=== PATIENT | male | born 1960 | race Caucasian/White ===

== ENCOUNTER → 2017-03-03 | Outpatient (CLI) | payer MEDICAID ==
[~2017-03-03] MED LIST: BLOOD PRESSURE MED PO; CAFF200T38 PO; LISI1TAB7 PO; LISI40TA PO; METF500T4 PO; METFORMIN PO
[2017-03-03 09:16] LABS: HEMATOCRIT 42.8 % (39.2-51.8); HEMOGLOBIN 14.1 g/dL (13.7-18.0); WHITE BLOOD COUNT 5.3 x10^3/uL (3.4-10)
[2017-03-03 09:28] LABS: BLOOD UREA NITROGEN 13 mg/dL (7-18)
[2017-03-03 09:29] LABS: ASPARTATE AMINO TRANSFERASE 77 U/L (15-37)
== END | disposition home or self-care (01) ==
LOC: STAR 08:12
PROVIDERS: ATTEND Orthopaedic Surgery Orthopaedic Surgery of the Spine
DX: Z01.818 Encounter for other preprocedural examination (principal); R94.31 Abnormal electrocardiogram [ECG] [EKG]; M96.0 Pseudarthrosis after fusion or arthrodesis; M54.12 Radiculopathy, cervical region; E11.9 Type 2 diabetes mellitus without complications
CPT/HCPCS: 36415; 71020; 80053; 81001; 85025; 93005

== ENCOUNTER 2017-03-05 14:56 | Inpatient (IN) | payer MEDICAID ==
[~2017-03-05] VITALS: Ht 172.7 cm; Wt 79.7 kg
[2017-03-05] MEDS ORDERED: SODIUM CHLORIDE FLUSH 10ML SYR IVF ONE (15:30)
[2017-03-05] MEDS ORDERED: FAMOTIDINE 20 MG TABLET PO ONE (15:30)
[2017-03-05] MEDS ORDERED: DIPHENHYDRAMINE 50 MG/ML, 1ML IVPush ONE (15:30)
[2017-03-05] MEDS ORDERED: methylPREDNISolone SOD SUCC 125 MG/2 ML IVPush ONE (15:30)
[2017-03-05] MEDS ORDERED: methylPREDNISolone SOD SUCC 125 MG/2 ML ONE (15:59)
[2017-03-05] MEDS ORDERED: FAMOTIDINE 20 MG TABLET ONE (16:00)
[2017-03-05] MEDS ORDERED: DIPHENHYDRAMINE 50 MG/ML, 1ML ONE (16:00)
[2017-03-05 16:04] LABS: HEMATOCRIT 42.8 % (39.2-51.8); HEMOGLOBIN 13.9 g/dL (13.7-18.0); WHITE BLOOD COUNT 5.6 x10^3/uL (3.4-10)
[2017-03-05 16:14] LABS: BLOOD UREA NITROGEN 15 mg/dL (7-18)
[2017-03-05] MEDS ORDERED: NITROGLYCERIN OINT 2%, 1GM TP ONE ×2 (16:25→16:30)
[2017-03-05] MEDS ORDERED: FUROSEMIDE 40 MG/4 ML ONE (16:25)
[2017-03-05] MEDS ORDERED: LORazepam 2 MG/ML, 1ML ONE (16:26)
[2017-03-05] MEDS ORDERED: FUROSEMIDE 40 MG/4 ML IVPush ONE (16:30)
[2017-03-05] MEDS ORDERED: LORazepam 2 MG/ML, 1ML IVPush ONE (16:30)
[2017-03-05] MEDS ORDERED: DILTIAZEM 5 MG/ML, 5ML ONE ×2 (16:38→17:37)
[2017-03-05] MEDS ORDERED: DILTIAZEM 5 MG/ML, 5ML IV ONE ×2 (17:00→18:00)
[2017-03-05] MEDS ORDERED: SODIUM CHLORIDE FLUSH 10ML SYR IVF PRN (18:30)
[2017-03-05] MEDS ORDERED: ONDANSETRON ODT 4 MG PO PRN (19:00)
[2017-03-05] MEDS ORDERED: DOCUSATE 100 MG CAPSULE PO PRN (19:00)
[2017-03-05] MEDS ORDERED: ACETAMINOPHEN 325 MG TABLET PO PRN (19:00)
[2017-03-05] MEDS ORDERED: LABETALOL 5MG/ML, 20ML ONE (19:44)
[2017-03-05] MEDS: LABETALOL 5MG/ML, 20ML IVPush PRN ×2 (19:53→23:29)
[2017-03-05] MEDS: FAMOTIDINE 20 MG/2 ML IVPush SCH (21:39)
[2017-03-05 22:03] VITALS: BP 180/104
[2017-03-05] MEDS ORDERED: MAGNESIUM SULFATE PMX 4GM/100M 100 ML IV ONE (23:00)
[2017-03-05] MEDS: DIPHENHYDRAMINE 50 MG/ML, 1ML IVPush SCH (23:26)
[2017-03-05] MEDS: INSULIN ASPART 100 UNITS/ML, PEN SQ-INSULIN SCH (23:27)
[2017-03-05] MEDS: BEER 12 OZ CAN PO SCH (23:27)
[2017-03-05] MEDS: methylPREDNISolone SOD SUCC 125 MG/2 ML IVPush SCH (23:33)
[2017-03-05] MEDS: ENOXAPARIN 40 MG/0.4 ML SQ SCH (23:34)
[2017-03-05 23:55] VITALS: BP 167/100
[2017-03-06] VITALS (11 sets, daily range): BP systolic 148–197; BP diastolic 89–131
[2017-03-06] MEDS: DIPHENHYDRAMINE 50 MG/ML, 1ML IVPush SCH ×4 (02:08→16:44)
[2017-03-06] MEDS: LABETALOL 5MG/ML, 20ML IVPush PRN (02:09)
[2017-03-06] MEDS: ENALAPRILAT 1.25 MG/ML, 2ML IV PRN ×5 (05:38→20:55)
[2017-03-06] MEDS: methylPREDNISolone SOD SUCC 125 MG/2 ML IVPush SCH ×3 (05:39→20:04)
[2017-03-06 05:51] LABS: BLOOD UREA NITROGEN 21 mg/dL (7-18)
[2017-03-06 05:56] LABS: HEMATOCRIT 45.3 % (39.2-51.8); HEMOGLOBIN 14.9 g/dL (13.7-18.0); WHITE BLOOD COUNT 3.2 x10^3/uL (3.4-10)
[2017-03-06] MEDS ORDERED: METOPROLOL TARTRATE 50 MG TABLET ONE (07:47)
[2017-03-06] MEDS: INSULIN ASPART 100 UNITS/ML, PEN SQ-INSULIN SCH ×4 (07:57→20:05)
[2017-03-06] MEDS: METOPROLOL TARTRATE 25 MG TABLET PO SCH ×2 (07:57→16:54)
[2017-03-06] MEDS: hydrALAzine 20 MG/ML, 1ML IV PRN ×3 (07:58→22:15)
[2017-03-06] MEDS: FAMOTIDINE 20 MG/2 ML IVPush SCH ×2 (07:58→20:04)
[2017-03-06] MEDS ORDERED: LORazepam 2 MG/ML, 1ML IVPush PRN (08:00)
[2017-03-06] MEDS: BEER 12 OZ CAN PO SCH ×2 (08:29→16:54)
[2017-03-06] MEDS: LISINOPRIL 20 MG TABLET PO SCH (08:29)
[2017-03-06] MEDS: FUROSEMIDE 20 MG/2 ML IV SCH ×2 (09:30→16:54)
[2017-03-06] MEDS: ENOXAPARIN 40 MG/0.4 ML SQ SCH (20:04)
[2017-03-06] MEDS: AMLODIPINE 5 MG TABLET PO SCH (20:05)
[2017-03-07] VITALS (7 sets, daily range): BP systolic 138–182; BP diastolic 87–116
[2017-03-07] MEDS: DIPHENHYDRAMINE 50 MG/ML, 1ML IVPush SCH ×3 (00:46→17:10)
[2017-03-07] MEDS: methylPREDNISolone SOD SUCC 125 MG/2 ML IVPush SCH ×3 (03:56→19:54)
[2017-03-07] MEDS: hydrALAzine 20 MG/ML, 1ML IV PRN (04:08)
[2017-03-07 05:06] LABS: HEMOGLOBIN 14.4 g/dL (13.7-18.0); WHITE BLOOD COUNT 10.3 x10^3/uL (3.4-10)
[2017-03-07 05:13] LABS: ASPARTATE AMINO TRANSFERASE 31 U/L (15-37); BLOOD UREA NITROGEN 31 mg/dL (7-18)
[2017-03-07] MEDS: METOPROLOL TARTRATE 25 MG TABLET PO SCH ×2 (05:14→17:10)
[2017-03-07] MEDS: AMLODIPINE 5 MG TABLET PO SCH ×2 (07:37→19:54)
[2017-03-07] MEDS: LISINOPRIL 20 MG TABLET PO SCH (07:37)
[2017-03-07] MEDS: INSULIN ASPART 100 UNITS/ML, PEN SQ-INSULIN SCH ×4 (07:38→19:54)
[2017-03-07] MEDS: BEER 12 OZ CAN PO SCH ×2 (08:20→17:28)
[2017-03-07] MEDS ORDERED: FUROSEMIDE 20 MG/2 ML IV ONE (09:00)
[2017-03-07] MEDS: FAMOTIDINE 20 MG TABLET PO SCH ×2 (11:35→19:54)
[2017-03-07] MEDS: ENOXAPARIN 40 MG/0.4 ML SQ SCH (17:10)
[2017-03-08 00:21] VITALS: BP 178/112
[2017-03-08] MEDS: hydrALAzine 20 MG/ML, 1ML IV PRN (00:27)
[2017-03-08] MEDS: methylPREDNISolone SOD SUCC 125 MG/2 ML IVPush SCH ×2 (03:25→11:55)
[2017-03-08 03:27] VITALS: BP 159/100
[2017-03-08 05:49] VITALS: BP 153/101
[2017-03-08] MEDS: METOPROLOL TARTRATE 25 MG TABLET PO SCH (05:49)
[2017-03-08 05:54] LABS: HEMATOCRIT 45.5 % (39.2-51.8); HEMOGLOBIN 14.9 g/dL (13.7-18.0); WHITE BLOOD COUNT 10.3 x10^3/uL (3.4-10)
[2017-03-08 06:05] LABS: BLOOD UREA NITROGEN 31 mg/dL (7-18)
[2017-03-08 07:30] VITALS: BP 155/109
[2017-03-08] MEDS: AMLODIPINE 5 MG TABLET PO SCH (07:34)
[2017-03-08] MEDS: LISINOPRIL 20 MG TABLET PO SCH (07:34)
[2017-03-08] MEDS: FAMOTIDINE 20 MG TABLET PO SCH (07:34)
[2017-03-08] MEDS: INSULIN ASPART 100 UNITS/ML, PEN SQ-INSULIN SCH ×2 (07:35→11:55)
[2017-03-08] MEDS: BEER 12 OZ CAN PO SCH (08:50)
[2017-03-08] MEDS ORDERED: METO25TA35 PO (11:50)
[2017-03-08] MEDS ORDERED: AMLO5TAB2 PO (11:50)
== END 2017-03-08 15:42 | disposition home or self-care (01) | DRG 304 ==
LOC: ED 17:04 → EDIP 18:14 → 5SO 21:53 → DCLOUNGE 03-08 15:15
PROVIDERS: ADMIT Family Medicine; ATTEND Family Medicine
DX: I16.9 Hypertensive crisis, unspecified (principal); I50.21 Acute systolic (congestive) heart failure; I31.3 Pericardial effusion (noninflammatory); E11.621 Type 2 diabetes mellitus with foot ulcer; L97.509 Non-pressure chronic ulcer of other part of unspecified foot with unspecified severity; R13.10 Dysphagia, unspecified; I11.0 Hypertensive heart disease with heart failure; F10.20 Alcohol dependence, uncomplicated; I16.0 Hypertensive urgency; R04.0 Epistaxis; T78.3XXA Angioneurotic edema, initial encounter; M48.00 Spinal stenosis, site unspecified
CPT/HCPCS: 36415; 71010; 71275; 80048; 80053; 82040; 82962; 83036; 83735; 83880; 84100; 84439; 84443; 85025; 85379; 93005; 93306; 96374; 96375; J1650; J1815; J1940; Q0162; Q9967; J0360; J1200; J2060; J2930; J3475; S0028

== ENCOUNTER 2017-03-10 07:30 | Inpatient (IN) | payer MEDICAID ==
[~2017-03-10] VITALS: Ht 172.7 cm; Wt 78.3 kg
[~2017-03-10 07:30] MED LIST changes: +AMLO5TAB2 PO; +BACITRACIN OINT 500U/GM, 15 GM ONE; +BUPIVACAINE/PF 0.5% ONE; +EPINEPHRINE 1 MG/ML, 1ML ONE; +METO25TA35 PO; +OMNIPAQUE 350 MG/ML, 100ML BOTTLE ONE; +THROMBIN 5,000 UNIT VIAL TP ONE
[2017-03-10] MEDS ORDERED: LACTATED RINGERS 1,000 ML IV SCH (08:00)
[2017-03-10] MEDS ORDERED: AMLO5TAB2 PO (08:39)
[2017-03-10] MEDS ORDERED: METO25TA35 PO (08:39)
[2017-03-10 08:40] VITALS: BP 160/115
[2017-03-10] MEDS ORDERED: MIDAZOLAM 1 MG/ML, 2ML ONE (10:06)
[2017-03-10] MEDS ORDERED: FENTANYL PF 100 MCG/2ML ONE ×3 (10:06→13:31)
[2017-03-10] MEDS ORDERED: BISACODYL 10 MG SUPP PR PRN (11:00)
[2017-03-10] MEDS ORDERED: morphine SULFATE 10 MG/ML, 1ML IVPush PRN (11:00)
[2017-03-10] MEDS ORDERED: ONDANSETRON 2MG/ML, 2ML IVPush PRN ×2 (11:00→12:30)
[2017-03-10] MEDS ORDERED: SENNA/DOCUSATE TABLET PO PRN (11:00)
[2017-03-10] MEDS ORDERED: PROMETHAZINE 25 MG/ML, 1ML IM PRN (11:00)
[2017-03-10] MEDS ORDERED: DIPHENHYDRAMINE 50 MG/ML, 1ML IVPush PRN (11:00)
[2017-03-10] MEDS ORDERED: LABETALOL 5MG/ML, 20ML IVPush PRN (11:00)
[2017-03-10] MEDS ORDERED: MAGNESIUM HYDROXIDE 8%, 30ML UDC PO PRN (11:00)
[2017-03-10] MEDS ORDERED: PHARMACY MAY ADJ FOR RENAL FX MC PRN (11:00)
[2017-03-10] MEDS ORDERED: CEFAZOLIN 1,000 MG ONE (11:02)
[2017-03-10] MEDS ORDERED: PROPOFOL 10 MG/ML, 20ML ONE (11:02)
[2017-03-10] MEDS ORDERED: DEXAMETHASONE 4 MG/ML, 1ML ONE (11:02)
[2017-03-10] MEDS ORDERED: ONDANSETRON 2MG/ML, 2ML ONE (11:02)
[2017-03-10] MEDS ORDERED: PROMETHAZINE 25 MG/ML, 1ML IV PRN (12:30)
[2017-03-10] MEDS ORDERED: hydrALAzine 20 MG/ML, 1ML IV PRN (12:30)
[2017-03-10] MEDS ORDERED: ACETAMINOPHEN 325 MG TABLET PO PRN (12:30)
[2017-03-10] MEDS ORDERED: HYDROmorphone 1 MG/ML, 1ML IV PRN (12:30)
[2017-03-10] MEDS ORDERED: LABETALOL 5MG/ML, 20ML IV PRN (12:30)
[2017-03-10] MEDS ORDERED: OXYcodone 5 MG/5 ML ORAL.SOL UDC PO PRN (12:30)
[2017-03-10] MEDS ORDERED: METOPROLOL 1 MG/ML, 5ML IV PRN (12:30)
[2017-03-10] MEDS ORDERED: FENTANYL PF 100 MCG/2ML IV PRN (12:30)
[2017-03-10] MEDS ORDERED: MEPERIDINE/PF 25MG/0.5ML IVPush PRN (12:30)
[2017-03-10] MEDS ORDERED: MORPHINE SULFATE 4 MG/ML, 1ML ONE (12:58)
[2017-03-10] MEDS ORDERED: ACETAMINOPHEN 650 MG/20.3 ML UDC ONE (13:31)
[2017-03-10] MEDS ORDERED: HYDROmorphone 1 MG/ML, 1ML ONE (13:31)
[2017-03-10] MEDS ORDERED: OXYcodone 5 MG/5 ML ORAL.SOL UDC ONE (13:31)
[2017-03-10] MEDS ORDERED: hydrALAzine 20 MG/ML, 1ML ONE (14:01)
[2017-03-10] MEDS: METHOCARBAMOL 750 MG TABLET PO PRN (16:04)
[2017-03-10] MEDS: OXYcodone/APAP 5/325MG TABLET PO PRN ×2 (18:30→22:43)
[2017-03-10] MEDS: NS + 20MEQ KCL 1,000 ML IV SCH (18:30)
[2017-03-10] MEDS: CEFAZOLIN PMX 1GM/50ML 50 ML IVPB SCH (19:58)
[2017-03-10 21:14] VITALS: BP 144/59
[2017-03-10] MEDS: BEER 12 OZ CAN PO SCH (21:23)
[2017-03-10] MEDS: AMLODIPINE 5 MG TABLET PO SCH (21:24)
[2017-03-10] MEDS: metFORMIN 500 MG TABLET PO SCH (21:24)
[2017-03-10] MEDS: METOPROLOL TARTRATE 25 MG TABLET PO SCH (21:24)
[2017-03-10] MEDS: INSULIN REGULAR 100 UNITS/ML, 3ML VIAL SQ-INSULIN PRN (22:17)
[2017-03-11] MEDS: INSULIN REGULAR 100 UNITS/ML, 3ML VIAL SQ-INSULIN PRN ×2 (00:26→14:23)
[2017-03-11 02:05] VITALS: BP 135/85
[2017-03-11] MEDS: OXYcodone/APAP 5/325MG TABLET PO PRN ×3 (03:12→12:45)
[2017-03-11] MEDS: CEFAZOLIN PMX 1GM/50ML 50 ML IVPB SCH (03:36)
[2017-03-11 03:40] VITALS: BP 128/81
[2017-03-11] MEDS: NS + 20MEQ KCL 1,000 ML IV SCH ×2 (04:50→14:30)
[2017-03-11 07:13] VITALS: BP 156/80
[2017-03-11] MEDS: metFORMIN 500 MG TABLET PO SCH (07:37)
[2017-03-11] MEDS: METOPROLOL TARTRATE 25 MG TABLET PO SCH (07:38)
[2017-03-11] MEDS: AMLODIPINE 5 MG TABLET PO SCH (07:38)
[2017-03-11] MEDS: BEER 12 OZ CAN PO SCH (07:56)
[2017-03-11] MEDS ORDERED: LISINOPRIL 20 MG TABLET PO SCH (09:00)
[2017-03-11] MEDS ORDERED: OXYC-302 PO (13:31)
[2017-03-11] MEDS ORDERED: CEPH-368 PO (13:31)
[2017-03-11] MEDS ORDERED: SENN1TAB7 PO (13:36)
[2017-03-11] MEDS: METHOCARBAMOL 750 MG TABLET PO PRN (14:20)
[2017-03-11 14:39] VITALS: BP 136/95
== END 2017-03-11 15:44 | disposition home or self-care (01) | DRG 472 ==
LOC: ORIP 07:37 → 4NOR 14:46 → DCLOUNGE 03-11 15:16
PROVIDERS: ADMIT Orthopaedic Surgery Orthopaedic Surgery of the Spine; ATTEND Orthopaedic Surgery Orthopaedic Surgery of the Spine
PROC: 0RG40K1 Fusion of Cervicothoracic Vertebral Joint with Nonautologous Tissue Substitute, Posterior Approach, Posterior Column, Open Approach (ICD-10-PCS; 2017-03-10)
PROC: 0RP Upper Joints, Removal (ICD-10-PCS; 2017-03-10)
PROC: 0RP104Z Removal of Internal Fixation Device from Cervical Vertebral Joint, Open Approach (ICD-10-PCS; 2017-03-10)
PROC: 4A11X4G Monitoring of Peripheral Nervous Electrical Activity, Intraoperative, External Approach (ICD-10-PCS; 2017-03-10)
PROC: 0RG10K1 Fusion of Cervical Vertebral Joint with Nonautologous Tissue Substitute, Posterior Approach, Posterior Column, Open Approach (ICD-10-PCS; principal; 2017-03-10 10:30)
DX: M48.02 Spinal stenosis, cervical region (principal); M96.0 Pseudarthrosis after fusion or arthrodesis; E11.9 Type 2 diabetes mellitus without complications; Y83.8 Other surgical procedures as the cause of abnormal reaction of the patient, or of later complication, without mention of misadventure at the time of the procedure; M54.12 Radiculopathy, cervical region; R03.0 Elevated blood-pressure reading, without diagnosis of hypertension; Z98.1 Arthrodesis status
CPT/HCPCS: 36415; 72040; 82962; 86850; 86900; C1713; J0171; J0690; J1100; J1170; J1815; J2250; J2405; J2704; J3010; J3480; J3490; Q9967; C1762; J0360; J7120

== ENCOUNTER 2017-08-13 13:06 | Inpatient (IN) | payer MEDICAID ==
[~2017-08-13] VITALS: Ht 172.7 cm; Wt 77.6 kg
[~2017-08-13 13:06] MED LIST changes: -BACITRACIN OINT 500U/GM, 15 GM ONE; -BUPIVACAINE/PF 0.5% ONE; +CEPH-368 PO; -EPINEPHRINE 1 MG/ML, 1ML ONE; -OMNIPAQUE 350 MG/ML, 100ML BOTTLE ONE; +OXYC-302 PO; +SENN1TAB7 PO; -THROMBIN 5,000 UNIT VIAL TP ONE
[2017-08-13] MEDS ORDERED: ASPIRIN 325 MG TABLET PO STA (13:30)
[2017-08-13] MEDS ORDERED: ASPIRIN 81 MG TABLET CHEW ONE (13:33)
[2017-08-13 13:37] LABS: BASOPHILS # (AUTO) 0.04 x10^3/uL (0-0.1); BASOPHILS % (AUTO) 1 % (0-1); EOSINOPHILS # (AUTO) 0.19 x10^3/uL (0-0.4); EOSINOPHILS % (AUTO) 3 % (1-7); LYMPHOCYTES # (AUTO) 1.91 x10^3/uL (1-3.4); LYMPHOCYTES % (AUTO) 25 % (22-44); MD NO; MEAN CORPUSCULAR HEMOGLOBIN 34.2 pg (27.5-34.5); MEAN CORPUSCULAR HGB CONC 34.1 g/dL (33.2-36.2); MEAN CORPUSCULAR VOLUME 100.2 fL (81-97); MONOCYTES # (AUTO) 0.76 x10^3/uL (0.2-0.8); MONOCYTES % (AUTO) 10 % (2-9); NEUTROPHILS # (AUTO) 4.89 x10^3/uL (1.8-6.8); NEUTROPHILS % (AUTO) 63 % (42-75); PLATELET COUNT 206 x10^3/uL (130-400); RED BLOOD COUNT 5.01 x10^6/uL (4.38-5.82); RED CELL DISTRIBUTION WIDTH 14.6 % (9.4-14.8)
[2017-08-13] MEDS ORDERED: HEPARIN 5,000 UNITS/ML, 1ML ONE (13:45)
[2017-08-13 13:47] LABS: INTERNATIONAL NORMALIZED RATIO 1.01 (0.93-1.1); PROTHROMBIN TIME 10.5 Seconds (9.6-11.5)
[2017-08-13] MEDS ORDERED: HEPARIN 1,000 UNITS/ML, 1ML IV STA (13:48)
[2017-08-13] MEDS ORDERED: NITROGLYCERIN SINGLE TAB 0.4 MG SL ONE (13:52)
[2017-08-13 13:53] LABS: ALANINE AMINOTRANSFERASE 39 U/L (12-78); ALBUMIN 3.9 g/dL (3.4-5.0); ANION GAP 9 mmol/L (5-15); CALCIUM 8.4 mg/dL (8.5-10.1); CHLORIDE 102 mmol/L (98-107); CREATININE 1.13 mg/dL (0.7-1.3)
[2017-08-13] MEDS ORDERED: FENTANYL PF 100 MCG/2ML ONE (13:54)
[2017-08-13] MEDS ORDERED: HEPARIN 1,000 UNITS/ML, 10ML ONE (13:55)
[2017-08-13] MEDS ORDERED: NITROGLYCERIN 5 MG/ML, 10ML ONE (13:55)
[2017-08-13] MEDS ORDERED: LIDOCAINE 2%, 20ML ONE (13:55)
[2017-08-13] MEDS ORDERED: MIDAZOLAM 1 MG/ML, 2ML ONE (13:55)
[2017-08-13] MEDS ORDERED: VERAPAMIL 2.5 MG/ML, 2ML ONE (13:55)
[2017-08-13] MEDS ORDERED: TICAGRELOR 90 MG TABLET ONE (13:55)
[2017-08-13] MEDS ORDERED: BIVALIRUDIN 250 MG ONE (13:55)
[2017-08-13 13:57] LABS: ALKALINE PHOSPHATASE 82 U/L (45-117); BILIRUBIN,TOTAL 0.7 mg/dL (0.2-1.0); TOTAL PROTEIN 7.9 g/dL (6.4-8.2); TROPONIN I < 0.015 ng/mL (0.000-0.045)
[2017-08-13] MEDS ORDERED: SODIUM CHLORIDE FLUSH 10ML SYR IVF ONE (14:00)
[2017-08-13] MEDS ORDERED: NITROGLYCERIN SINGLE TAB 0.4 MG SL PRN (14:00)
[2017-08-13] MEDS ORDERED: ONDANSETRON 2MG/ML, 2ML ONE (14:14)
[2017-08-13] MEDS ORDERED: SODIUM CHLORIDE 0.9% 1,000ML IVBOLUS ONE ×2 (15:00→15:30)
[2017-08-13] MEDS ORDERED: SODIUM CHLORIDE 0.9% 1,000 ML IV SCH (15:09)
[2017-08-13] MEDS ORDERED: ONDANSETRON 2MG/ML, 2ML IVPush PRN (15:30)
[2017-08-13] MEDS ORDERED: BISACODYL 10 MG SUPP PR PRN (15:30)
[2017-08-13] MEDS ORDERED: POLYETHYLENE GLYCOL 17 GM PACKET PO PRN (15:30)
[2017-08-13] MEDS ORDERED: ACETAMINOPHEN 325 MG TABLET PO PRN (15:30)
[2017-08-13] MEDS ORDERED: DOCUSATE 100 MG CAPSULE PO PRN (15:30)
[2017-08-13] MEDS ORDERED: LABETALOL 5MG/ML, 20ML IVPush PRN (15:30)
[2017-08-13] MEDS: INSULIN LISPRO 100 UNITS/ML, PEN SQ-INSULIN SCH ×2 (16:00→20:06)
[2017-08-13] MEDS ORDERED: ENOXAPARIN 40 MG/0.4 ML SQ SCH (16:00)
[2017-08-13 16:26] LABS: FOLATE LEVEL 6.4 ng/mL (3.1-17.5); THYROID STIMULATING HORMONE 0.959 mIU/L (0.358-3.740)
[2017-08-13] MEDS ORDERED: OMNIPAQUE 350 MG/ML, 100ML BOTTLE ONE (17:50)
[2017-08-13 20:00] VITALS: BP 130/86
[2017-08-14 01:13] VITALS: BP 130/88
[2017-08-14 04:49] LABS: BASOPHILS # (AUTO) 0.06 x10^3/uL (0-0.1); BASOPHILS % (AUTO) 1 % (0-1); EOSINOPHILS # (AUTO) 0.25 x10^3/uL (0-0.4); EOSINOPHILS % (AUTO) 3 % (1-7); LYMPHOCYTES # (AUTO) 1.87 x10^3/uL (1-3.4); LYMPHOCYTES % (AUTO) 24 % (22-44); MD NO; MEAN CORPUSCULAR HGB CONC 34.4 g/dL (33.2-36.2); MEAN CORPUSCULAR VOLUME 99.1 fL (81-97); MEAN PLATELET VOLUME 8.4 fL (7.4-10.4); MONOCYTES # (AUTO) 0.71 x10^3/uL (0.2-0.8); MONOCYTES % (AUTO) 9 % (2-9); NEUTROPHILS % (AUTO) 63 % (42-75); PLATELET COUNT 169 x10^3/uL (130-400); RED BLOOD COUNT 4.48 x10^6/uL (4.38-5.82); RED CELL DISTRIBUTION WIDTH 14.8 % (9.4-14.8)
[2017-08-14 05:00] LABS: ANION GAP 8 mmol/L (5-15); CALCIUM 8.1 mg/dL (8.5-10.1); CHLORIDE 105 mmol/L (98-107); CREATININE 1.05 mg/dL (0.7-1.3)
[2017-08-14] MEDS: INSULIN LISPRO 100 UNITS/ML, PEN SQ-INSULIN SCH ×2 (07:00→11:00)
[2017-08-14 07:15] VITALS: BP 121/89
[2017-08-14] MEDS ORDERED: FLU VACC QS2017-18 (36MOS+) UP/PF 0.5 ML IM-VACC ONE (07:30)
[2017-08-14] MEDS ORDERED: LISINOPRIL 20 MG TABLET PO SCH (09:00)
== END 2017-08-14 15:30 | disposition home health service (06) | DRG 204 ==
LOC: ED 13:43 → EDIP 14:15 → 5SO 14:44
PROVIDERS: ADMIT Internal Medicine; ATTEND Internal Medicine
PROC: 4A023N7 Measurement of Cardiac Sampling and Pressure, Left Heart, Percutaneous Approach (ICD-10-PCS; principal; 2017-08-13)
PROC: B2111ZZ Fluoroscopy of Multiple Coronary Arteries using Low Osmolar Contrast (ICD-10-PCS; 2017-08-13)
PROC: B2151ZZ Fluoroscopy of Left Heart using Low Osmolar Contrast (ICD-10-PCS; 2017-08-13)
DX: R06.00 Dyspnea, unspecified (principal); I50.32 Chronic diastolic (congestive) heart failure; E11.65 Type 2 diabetes mellitus with hyperglycemia; I11.0 Hypertensive heart disease with heart failure; I27.20 Pulmonary hypertension, unspecified; D75.89 Other specified diseases of blood and blood-forming organs; E78.5 Hyperlipidemia, unspecified; I07.1 Rheumatic tricuspid insufficiency; I25.10 Atherosclerotic heart disease of native coronary artery without angina pectoris; M48.00 Spinal stenosis, site unspecified; S09.90XA Unspecified injury of head, initial encounter; X58.XXXA Exposure to other specified factors, initial encounter; Z79.84 Long term (current) use of oral hypoglycemic drugs; Z82.49 Family history of ischemic heart disease and other diseases of the circulatory system; Z83.3 Family history of diabetes mellitus; Z98.1 Arthrodesis status
CPT/HCPCS: 36415; 71045; 71275; 80047; 80048; 80053; 82607; 82746; 82962; 83880; 84443; 84484; 85025; 85379; 85610; 85730; 90686; 93005; 93458; 93880; 99156; 99291; C1769; C1894; J0583; J1644; J1650; J2250; J2405; J3010; J3490; Q9967; C1887; J1815; J7030

== ENCOUNTER 2017-09-04 09:09 | Inpatient (IN) | payer MEDICAID ==
[~2017-09-04] VITALS: Ht 172.7 cm; Wt 73.3 kg
[2017-09-04] MEDS ORDERED: ASPI1TAB85 PO (10:05)
[2017-09-04 10:19] LABS: BASOPHILS # (AUTO) 0.03 x10^3/uL (0-0.1); BASOPHILS % (AUTO) 1 % (0-1); EOSINOPHILS # (AUTO) 0.13 x10^3/uL (0-0.4); EOSINOPHILS % (AUTO) 2 % (1-7); LYMPHOCYTES # (AUTO) 0.91 x10^3/uL (1-3.4); LYMPHOCYTES % (AUTO) 13 % (22-44); MD NO; MEAN CORPUSCULAR HEMOGLOBIN 32.9 pg (27.5-34.5); MEAN CORPUSCULAR HGB CONC 32.4 g/dL (33.2-36.2); MEAN CORPUSCULAR VOLUME 101.5 fL (81-97); MEAN PLATELET VOLUME 8.8 fL (7.4-10.4); MONOCYTES % (AUTO) 7 % (2-9); NEUTROPHILS # (AUTO) 5.28 x10^3/uL (1.8-6.8); NEUTROPHILS % (AUTO) 77 % (42-75); PLATELET COUNT 189 x10^3/uL (130-400); RED BLOOD COUNT 4.34 x10^6/uL (4.38-5.82); RED CELL DISTRIBUTION WIDTH 15.5 % (9.4-14.8)
[2017-09-04 10:26] LABS: INTERNATIONAL NORMALIZED RATIO 1.1 (0.93-1.1); PROTHROMBIN TIME 11.3 Seconds (9.6-11.5)
[2017-09-04 10:29] LABS: ALANINE AMINOTRANSFERASE 113 U/L (12-78); ALBUMIN 3.4 g/dL (3.4-5.0); ANION GAP 6 mmol/L (5-15); CALCIUM 8.5 mg/dL (8.5-10.1); CHLORIDE 107 mmol/L (98-107)
[2017-09-04 10:34] LABS: ALKALINE PHOSPHATASE 103 U/L (45-117); BILIRUBIN,TOTAL 1.1 mg/dL (0.2-1.0); TROPONIN I 0.043 ng/mL (0.000-0.045)
[2017-09-04] MEDS ORDERED: ACETAMINOPHEN 500 MG TABLET PO ONE (12:00)
[2017-09-04] MEDS ORDERED: ACETAMINOPHEN 500 MG TABLET ONE (12:05)
[2017-09-04] MEDS ORDERED: OMNIPAQUE 350 MG/ML, 75ML BOTTLE ONE (12:16)
[2017-09-04] MEDS ORDERED: FUROSEMIDE 40 MG/4 ML IV ONE (14:00)
[2017-09-04] MEDS ORDERED: NITROGLYCERIN OINT 2%, 1GM TP ONE ×2 (14:30→14:52)
[2017-09-04] MEDS ORDERED: hydrALAzine 20 MG/ML, 1ML IV ONE (14:30)
[2017-09-04] MEDS ORDERED: MORPHINE SULFATE 4 MG/ML, 1ML IVPush PRN (14:30)
[2017-09-04] MEDS ORDERED: hydrALAzine 20 MG/ML, 1ML ONE (14:51)
[2017-09-04] MEDS ORDERED: MORPHINE SULFATE 4 MG/ML, 1ML ONE (14:52)
[2017-09-04] MEDS ORDERED: FUROSEMIDE 40 MG/4 ML ONE (14:52)
[2017-09-04 16:55] VITALS: BP 168/101
[2017-09-04] MEDS: INSULIN REGULAR 100 UNITS/ML, 3ML VIAL SQ-INSULIN SCH ×2 (17:00→21:03)
[2017-09-04] MEDS: FUROSEMIDE 40 MG/4 ML IV SCH (17:44)
[2017-09-04] MEDS: CLOTRIMAZOLE CRM 1%, 15GM TP SCH (18:37)
[2017-09-04 20:33] VITALS: BP 132/81
[2017-09-05] MEDS: ACETAMINOPHEN 325 MG TABLET PO PRN ×3 (00:16→16:45)
[2017-09-05 02:55] VITALS: BP 142/93
[2017-09-05] MEDS: FUROSEMIDE 40 MG/4 ML IV SCH ×2 (03:58→17:46)
[2017-09-05 05:46] LABS: CHLORIDE 103 mmol/L (98-107)
[2017-09-05 06:19] LABS: ANION GAP 11 mmol/L (5-15); CALCIUM 8.7 mg/dL (8.5-10.1); CREATININE 1.09 mg/dL (0.7-1.3); FOLATE LEVEL 11.4 ng/mL (3.1-17.5)
[2017-09-05] MEDS: INSULIN REGULAR 100 UNITS/ML, 3ML VIAL SQ-INSULIN SCH ×4 (07:00→21:00)
[2017-09-05 07:21] VITALS: BP 150/109
[2017-09-05] MEDS ORDERED: POTASSIUM CHLORIDE 20 MEQ TAB.ER.PRT PO ONE (07:30)
[2017-09-05] MEDS ORDERED: MAGNESIUM SULFATE PMX 4GM/100M 100 ML IV ONE (07:30)
[2017-09-05] MEDS: CLOTRIMAZOLE CRM 1%, 15GM TP SCH ×2 (09:20→21:34)
[2017-09-05 13:58] VITALS: BP 132/92
[2017-09-05] MEDS ORDERED: OXYcodone IR 5MG TABLET PO ONE (17:00)
[2017-09-05 19:20] VITALS: BP 133/90
[2017-09-06 03:30] VITALS: BP 144/93
[2017-09-06] MEDS: INSULIN REGULAR 100 UNITS/ML, 3ML VIAL SQ-INSULIN SCH (07:00)
[2017-09-06 07:45] LABS: ANION GAP 6 mmol/L (5-15); CALCIUM 8.6 mg/dL (8.5-10.1); CHLORIDE 104 mmol/L (98-107); CREATININE 1.06 mg/dL (0.7-1.3)
[2017-09-06 08:20] VITALS: BP 150/97
[2017-09-06] MEDS: CLOTRIMAZOLE CRM 1%, 15GM TP SCH (09:00)
[2017-09-06] MEDS: FUROSEMIDE 40 MG/4 ML IV SCH (09:08)
[2017-09-06] MEDS ORDERED: POTA20TA89 PO (09:51)
[2017-09-06] MEDS ORDERED: GLIP2.5T3 PO (09:51)
[2017-09-06] MEDS ORDERED: FURO40TA6 PO (09:51)
[2017-09-06] MEDS ORDERED: CLOT15CR5 TP (09:51)
[2017-09-06] MEDS ORDERED: CARVEDILOL 3.125 MG TABLET PO SCH (10:00)
[2017-09-06] MEDS ORDERED: CARV3.1212 PO (10:09)
== END 2017-09-06 12:35 | disposition home or self-care (01) | DRG 189 ==
LOC: ED 13:31 → EDIP 14:01 → 5SO 16:42 → DCLOUNGE 09-06 12:15
PROVIDERS: ADMIT Hospitalist; ATTEND Hospitalist
DX: J96.00 Acute respiratory failure, unspecified whether with hypoxia or hypercapnia (principal); I31.3 Pericardial effusion (noninflammatory); I11.0 Hypertensive heart disease with heart failure; I07.1 Rheumatic tricuspid insufficiency; I50.9 Heart failure, unspecified; B35.3 Tinea pedis; J98.11 Atelectasis; E11.9 Type 2 diabetes mellitus without complications; E66.3 Overweight; E78.5 Hyperlipidemia, unspecified; I25.10 Atherosclerotic heart disease of native coronary artery without angina pectoris; L08.0 Pyoderma; L25.9 Unspecified contact dermatitis, unspecified cause; R07.89 Other chest pain; L27.0 Generalized skin eruption due to drugs and medicaments taken internally; Z68.24 Body mass index [BMI] 24.0-24.9, adult
CPT/HCPCS: 36415; 71046; 71260; 80048; 80053; 82607; 82746; 82962; 83605; 83690; 83735; 83880; 84145; 84484; 85025; 85610; 85651; 85730; 86141; 86430; 86592; 87806; 93005; 93306; 96374; 96375; J1815; J1940; Q9967; G0475; J0360; J3475

== ENCOUNTER → 2017-09-12 | Outpatient (CLI) | payer MEDICAID ==
[~2017-09-12] MED LIST changes: +ASPI1TAB85 PO; +CARV3.1212 PO; +CLOT15CR5 TP; +FURO40TA6 PO; +GLIP2.5T3 PO; +POTA20TA89 PO
== END | disposition home or self-care (01) ==
LOC: WOUND 13:03
PROVIDERS: ATTEND Internal Medicine
DX: S81.802A Unspecified open wound, left lower leg, initial encounter (principal); S91.102A Unspecified open wound of left great toe without damage to nail, initial encounter; E11.65 Type 2 diabetes mellitus with hyperglycemia; E78.5 Hyperlipidemia, unspecified; I25.10 Atherosclerotic heart disease of native coronary artery without angina pectoris; I11.0 Hypertensive heart disease with heart failure; I50.32 Chronic diastolic (congestive) heart failure; Z72.89 Other problems related to lifestyle; X58.XXXA Exposure to other specified factors, initial encounter; Y93.9 Activity, unspecified; Y92.9 Unspecified place or not applicable; Y99.8 Other external cause status
CPT/HCPCS: 97597; 99214

== ENCOUNTER → 2017-09-19 | Outpatient (CLI) | payer MEDICAID | END | disposition home or self-care (01) | LOC: WOUND 08:57 | PROVIDERS: ATTEND Internal Medicine | DX: E11.622 Type 2 diabetes mellitus with other skin ulcer (principal); L97.821 Non-pressure chronic ulcer of other part of left lower leg limited to breakdown of skin; E11.621 Type 2 diabetes mellitus with foot ulcer; L97.521 Non-pressure chronic ulcer of other part of left foot limited to breakdown of skin; E11.65 Type 2 diabetes mellitus with hyperglycemia; E78.5 Hyperlipidemia, unspecified; I25.10 Atherosclerotic heart disease of native coronary artery without angina pectoris; I11.0 Hypertensive heart disease with heart failure; I50.32 Chronic diastolic (congestive) heart failure; Z72.89 Other problems related to lifestyle | CPT/HCPCS: 97597 ==

== ENCOUNTER 2017-10-09 15:54 | Emergency (ER) | payer MEDICAID ==
[~2017-10-09] VITALS: Ht 172.7 cm; Wt 77.7 kg
[2017-10-09] MEDS ORDERED: LISI5TAB7 PO (16:16)
[2017-10-09] MEDS ORDERED: CARV6.252 PO (16:16)
[2017-10-09] MEDS ORDERED: METF500T4 PO (16:16)
[2017-10-09] MEDS ORDERED: SODIUM CHLORIDE FLUSH 10ML SYR IVF ONE (16:30)
[2017-10-09 16:49] LABS: BASOPHILS # (AUTO) 0.03 x10^3/uL (0-0.1); BASOPHILS % (AUTO) 0 % (0-1); EOSINOPHILS # (AUTO) 0.12 x10^3/uL (0-0.4); EOSINOPHILS % (AUTO) 2 % (1-7); LYMPHOCYTES # (AUTO) 1.23 x10^3/uL (1-3.4); LYMPHOCYTES % (AUTO) 17 % (22-44); MD NO; MEAN CORPUSCULAR HEMOGLOBIN 31.5 pg (27.5-34.5); MEAN CORPUSCULAR HGB CONC 32.9 g/dL (33.2-36.2); MEAN CORPUSCULAR VOLUME 95.8 fL (81-97); MEAN PLATELET VOLUME 9.4 fL (7.4-10.4); MONOCYTES # (AUTO) 0.48 x10^3/uL (0.2-0.8); MONOCYTES % (AUTO) 7 % (2-9); NEUTROPHILS # (AUTO) 5.53 x10^3/uL (1.8-6.8); NEUTROPHILS % (AUTO) 75 % (42-75); PLATELET COUNT 128 x10^3/uL (130-400); RED BLOOD COUNT 4.99 x10^6/uL (4.38-5.82)
[2017-10-09 16:58] LABS: ALANINE AMINOTRANSFERASE 28 U/L (12-78); ALBUMIN 3.3 g/dL (3.4-5.0); ANION GAP 9 mmol/L (5-15); CALCIUM 8.6 mg/dL (8.5-10.1); CHLORIDE 102 mmol/L (98-107); CREATININE 1.27 mg/dL (0.7-1.3)
[2017-10-09 17:02] LABS: ALKALINE PHOSPHATASE 127 U/L (45-117); BILIRUBIN,TOTAL 1.2 mg/dL (0.2-1.0); INTERNATIONAL NORMALIZED RATIO 1.14 (0.93-1.1); PROTHROMBIN TIME 11.8 Seconds (9.6-11.5); TOTAL PROTEIN 7.4 g/dL (6.4-8.2); TROPONIN I 0.019 ng/mL (0.000-0.045)
[2017-10-09 18:20] VITALS: BP 130/95
== END 2017-10-09 18:24 | disposition home or self-care (01) ==
LOC: ED 17:07
DX: I11.0 Hypertensive heart disease with heart failure (principal); I50.32 Chronic diastolic (congestive) heart failure; E11.9 Type 2 diabetes mellitus without complications; M10.9 Gout, unspecified
CPT/HCPCS: 36415; 71045; 80053; 83880; 84484; 85025; 85610; 85730; 93005; 99285

== ENCOUNTER → 2018-01-23 | Outpatient (CLI) | payer MEDICAID ==
[~2018-01-23] MED LIST changes: +ASPI-515 PO; +CARV6.2512 PO; +CARV6.252 PO; +LISI5TAB7 PO; -METF500T4 PO; +METF500T5 PO
== END | disposition home or self-care (01) ==
LOC: RAD 13:07
PROVIDERS: ATTEND Internal Medicine Cardiovascular Disease
DX: I27.29 Other secondary pulmonary hypertension (principal); I51.7 Cardiomegaly; J90 Pleural effusion, not elsewhere classified
CPT/HCPCS: 71045; 78582; 94060; 94726; 94729; A9540; A9558

== ENCOUNTER 2018-02-01 08:11 | Day surgery (SDC) | payer MEDICAID ==
[~2018-02-01] VITALS: Ht 172.7 cm; Wt 72.7 kg
[2018-02-01] MEDS ORDERED: SODIUM CHLORIDE 0.9% 1,000 ML IV ONE (08:28)
[2018-02-01 08:35] VITALS: BP 126/92
[2018-02-01] MEDS ORDERED: CARV3.1212 PO ×2 (08:55→08:59)
[2018-02-01] MEDS ORDERED: SPIR50TA PO (08:55)
[2018-02-01] MEDS ORDERED: LISI5TAB7 PO (08:55)
[2018-02-01] MEDS ORDERED: FURO20TA3 PO (08:58)
[2018-02-01] MEDS ORDERED: DIPHENHYDRAMINE 50 MG/ML, 1ML IVPush ONE (09:00)
[2018-02-01] MEDS ORDERED: DIPHENHYDRAMINE 50 MG/ML, 1ML ONE (09:03)
[2018-02-01 09:06] LABS: BASOPHILS # (AUTO) 0.03 x10^3/uL (0-0.1); BASOPHILS % (AUTO) 1 % (0-1); EOSINOPHILS # (AUTO) 0.11 x10^3/uL (0-0.4); EOSINOPHILS % (AUTO) 2 % (1-7); LYMPHOCYTES # (AUTO) 1.24 x10^3/uL (1-3.4); LYMPHOCYTES % (AUTO) 20 % (22-44); MD NO; MEAN CORPUSCULAR HEMOGLOBIN 31.7 pg (27.5-34.5); MEAN CORPUSCULAR HGB CONC 33.1 g/dL (33.2-36.2); MEAN CORPUSCULAR VOLUME 95.7 fL (81-97); MEAN PLATELET VOLUME 9.2 fL (7.4-10.4); MONOCYTES # (AUTO) 0.58 x10^3/uL (0.2-0.8); MONOCYTES % (AUTO) 9 % (2-9); NEUTROPHILS # (AUTO) 4.22 x10^3/uL (1.8-6.8); NEUTROPHILS % (AUTO) 68 % (42-75); PLATELET COUNT 163 x10^3/uL (130-400); RED BLOOD COUNT 4.91 x10^6/uL (4.38-5.82); RED CELL DISTRIBUTION WIDTH 18.2 % (9.4-14.8)
[2018-02-01 09:15] LABS: ALBUMIN 3.7 g/dL (3.4-5.0); ANION GAP 14 mmol/L (5-15); CALCIUM 9.2 mg/dL (8.5-10.1); CHLORIDE 103 mmol/L (98-107)
[2018-02-01 09:19] LABS: ALANINE AMINOTRANSFERASE 55 U/L (12-78); ALKALINE PHOSPHATASE 139 U/L (45-117); BILIRUBIN, DIRECT 1.1 mg/dL (0.1-0.2); BILIRUBIN,INDIRECT 0.8 mg/dL (0.0-2.0); BILIRUBIN,TOTAL 1.9 mg/dL (0.2-1.0); CREATININE 1.47 mg/dL (0.7-1.3); TOTAL PROTEIN 7.7 g/dL (6.4-8.2)
[2018-02-01 09:32] LABS: INTERNATIONAL NORMALIZED RATIO 1.3 (0.93-1.1); PROTHROMBIN TIME 13.4 Seconds (9.6-11.5)
[2018-02-01] MEDS ORDERED: FENTANYL PF 100 MCG/2ML ONE (09:44)
[2018-02-01] MEDS ORDERED: LIDOCAINE-MPF 2% ,5ML ONE (09:44)
[2018-02-01] MEDS ORDERED: VERAPAMIL 2.5 MG/ML, 2ML ONE (09:44)
[2018-02-01] MEDS ORDERED: MIDAZOLAM 1 MG/ML, 5ML ONE (09:44)
[2018-02-01] MEDS ORDERED: NITROGLYCERIN 5 MG/ML, 10ML ONE (09:44)
[2018-02-01] MEDS ORDERED: HEPARIN 1,000 UNITS/ML, 10ML ONE (09:45)
[2018-02-01] MEDS ORDERED: LIDOCAINE/PF 1%, 30ML ONE (10:27)
[2018-02-01] MEDS ORDERED: FURO-93 PO (11:47)
[2018-02-01] MEDS ORDERED: FUROSEMIDE 40 MG/4 ML IV ONE (12:00)
[2018-02-01] MEDS ORDERED: FUROSEMIDE 40 MG/4 ML ONE (13:21)
== END 2018-02-01 15:47 ==
LOC: CACL 08:11
PROVIDERS: ATTEND Internal Medicine Cardiovascular Disease
DX: I27.20 Pulmonary hypertension, unspecified (principal); I13.0 Hypertensive heart and chronic kidney disease with heart failure and stage 1 through stage 4 chronic kidney disease, or unspecified chronic kidney disease; I50.42 Chronic combined systolic (congestive) and diastolic (congestive) heart failure; E11.22 Type 2 diabetes mellitus with diabetic chronic kidney disease; N18.9 Chronic kidney disease, unspecified; E78.5 Hyperlipidemia, unspecified; F19.90 Other psychoactive substance use, unspecified, uncomplicated; R55 Syncope and collapse; Z79.82 Long term (current) use of aspirin; Z79.899 Other long term (current) drug therapy; Z98.890 Other specified postprocedural states
CPT/HCPCS: 36415; 80048; 80076; 85025; 85610; 93451; 99156; 99157; C1769; C1894; J1200; J1940; J2250; J3010; J3490; J1644

== ENCOUNTER 2018-12-07 10:49 | Outpatient (CLI) | payer MEDICAID ==
[~2018-12-07 10:49] MED LIST changes: +AMLO-150 PO; -AMLO5TAB2 PO; -CAFF200T38 PO; +CAFF200T68 PO; +FURO-93 PO; +FURO20TA3 PO; +METF500T17 PO; -METF500T5 PO; +SENN-177 PO; -SENN1TAB7 PO; +SPIR50TA PO
== END 2018-12-07 23:59 | disposition home or self-care (01) ==
LOC: CFH 10:49
PROVIDERS: ATTEND Internal Medicine Cardiovascular Disease
DX: I08.8 Other rheumatic multiple valve diseases (principal); I27.29 Other secondary pulmonary hypertension
CPT/HCPCS: 93306

== ENCOUNTER 2019-09-25 19:47 | Emergency (ER) | payer MEDICAID ==
[~2019-09-25] VITALS: Ht 172.7 cm; Wt 74.0 kg
[~2019-09-25 19:47] MED LIST changes: +LISI1TAB20 PO; -LISI1TAB7 PO
[2019-09-25 20:01] VITALS: BP 131/84
[2019-09-25] MEDS ORDERED: ONDANSETRON ODT 4 MG ONE (20:31)
[2019-09-25] MEDS ORDERED: OXYcodone/APAP 5/325MG TABLET ONE (20:32)
--- NOTE | 2019-09-25 20:43 | NUR ---
Pt here for right wrist and hand swelling with right thumb moderate swelling. Pt reports that its painful with movement. Pt has good pulse and cap refill to hand. Pt reports hx of gout. Pt resting in bed.
[2019-09-25 20:56] LABS: BASOPHILS # (AUTO) 0.05 x10^3/uL (0-0.1); BASOPHILS % (AUTO) 1 % (0-1); EOSINOPHILS # (AUTO) 0.16 x10^3/uL (0-0.4); EOSINOPHILS % (AUTO) 2 % (1-7); LYMPHOCYTES # (AUTO) 0.84 x10^3/uL (1-3.4); LYMPHOCYTES % (AUTO) 10 % (22-44); MD NO; MEAN CORPUSCULAR HEMOGLOBIN 32.6 pg (27.5-34.5); MEAN CORPUSCULAR VOLUME 98.6 fL (81-97); MEAN PLATELET VOLUME 7.5 fL (7.4-10.4); MONOCYTES # (AUTO) 0.82 x10^3/uL (0.2-0.8); MONOCYTES % (AUTO) 9 % (2-9); NEUTROPHILS # (AUTO) 6.95 x10^3/uL (1.8-6.8); NEUTROPHILS % (AUTO) 79 % (42-75); PLATELET COUNT 250 x10^3/uL (130-400); RED CELL DISTRIBUTION WIDTH 15.9 % (9.4-14.8)
[2019-09-25 20:57] LABS: HCT (SEDRATE) 50.2 % (39.2-51.8)
[2019-09-25] MEDS ORDERED: OXYcodone/APAP 5/325MG TABLET PO ONE (21:00)
[2019-09-25] MEDS ORDERED: ONDANSETRON ODT 8 MG PO ONE (21:00)
[2019-09-25 21:02] LABS: ALBUMIN 3.9 g/dL (3.4-5.0); ANION GAP 8 mmol/L (5-15); CALCIUM 9.5 mg/dL (8.5-10.1); CHLORIDE 96 mmol/L (98-107)
[2019-09-25 21:09] LABS: CREATININE 1.25 mg/dL (0.7-1.3)
[2019-09-25] MEDS ORDERED: TRIAMCINOLONE ACETONIDE 40 MG/ML, 1ML IM ONE (21:30)
[2019-09-25] MEDS ORDERED: COLCHICINE 0.6 MG CAPSULE PO ONE (21:30)
--- NOTE | 2019-09-25 21:56 | NUR ---
pt medicated per emar.
--- NOTE | 2019-09-25 21:56 | NUR ---
Patient/Caregiver given discharge instructions and they have confirmed that they understand the instructions. Patient ambulatory with steady gait.
== END 2019-09-25 21:58 | disposition home or self-care (01) ==
LOC: ED 19:50
DX: M10.031 Idiopathic gout, right wrist (principal); E87.1 Hypo-osmolality and hyponatremia; I11.0 Hypertensive heart disease with heart failure; I50.9 Heart failure, unspecified; E11.9 Type 2 diabetes mellitus without complications; I27.0 Primary pulmonary hypertension
CPT/HCPCS: 36415; 73110; 80048; 82040; 84550; 85025; 85651; 86140; 96372; 99284; J3301; Q0162

== ENCOUNTER 2019-12-06 13:49 | Inpatient (IN) | payer MEDICAID ==
[~2019-12-06] VITALS: Ht 172.7 cm; Wt 73.6 kg
--- NOTE | 2019-12-06 14:26 | NUR ---
STAVE SAW OPERATOR: PT TO ROOM VIA WHEELCHAIR FROM LOBBY AT THIS TIME.
--- NOTE | 2019-12-06 14:35 | NUR ---
PT C/O RIGHT FOOT PAIN EXTENDING UP TO RIGHT KNEE WITH SIGNIFICANT SWELLING. PT DENIES TRAUMA BUT HAS HX OF GOUT. PAIN STARTED YESTERDAY.
--- NOTE | 2019-12-06 14:44 | NUR ---
REPORT RECEIVED FROM LEORA HOUGH. PLAN OF CARE DISCUSSED. PATIENT RESTING ON GURNEY, RESPIRATIONS EVEN AND UNLABORED, VSS. NADN AT THIS TIME
[2019-12-06] MEDS ORDERED: SPIR25TA5 PO (14:50)
[2019-12-06] MEDS ORDERED: KETOROLAC 30 MG/1 ML ONE (15:22)
[2019-12-06] MEDS ORDERED: MORPHINE SULFATE 4 MG/ML, 1ML ONE (15:22)
[2019-12-06] MEDS ORDERED: ONDANSETRON 2MG/ML, 2ML ONE (15:22)
[2019-12-06] MEDS ORDERED: ONDANSETRON 2MG/ML, 2ML IVPush ONE (15:30)
[2019-12-06] MEDS ORDERED: MORPHINE SULFATE 4 MG/ML, 1ML IVPush PRN (15:30)
[2019-12-06] MEDS ORDERED: SODIUM CHLORIDE FLUSH 10ML SYR IVF ONE (15:30)
[2019-12-06] MEDS ORDERED: KETOROLAC 30 MG/1 ML IV ONE (15:30)
[2019-12-06 15:31] LABS: BASOPHILS # (AUTO) 0.01 x10^3/uL (0-0.1); BASOPHILS % (AUTO) 0 % (0-1); EOSINOPHILS # (AUTO) 0.02 x10^3/uL (0-0.4); EOSINOPHILS % (AUTO) 0 % (1-7); LYMPHOCYTES # (AUTO) 0.57 x10^3/uL (1-3.4); LYMPHOCYTES % (AUTO) 6 % (22-44); MD NO; MEAN CORPUSCULAR HEMOGLOBIN 33.3 pg (27.5-34.5); MEAN CORPUSCULAR HGB CONC 33.7 g/dL (33.2-36.2); MEAN CORPUSCULAR VOLUME 98.8 fL (81-97); MEAN PLATELET VOLUME 7.6 fL (7.4-10.4); MONOCYTES # (AUTO) 0.83 x10^3/uL (0.2-0.8); MONOCYTES % (AUTO) 9 % (2-9); NEUTROPHILS # (AUTO) 7.53 x10^3/uL (1.8-6.8); NEUTROPHILS % (AUTO) 84 % (42-75); PLATELET COUNT 224 x10^3/uL (130-400); RED CELL DISTRIBUTION WIDTH 15.5 % (9.4-14.8)
[2019-12-06 15:42] LABS: ALBUMIN 3.5 g/dL (3.4-5.0); ANION GAP 8 mmol/L (5-15); CALCIUM 9.2 mg/dL (8.5-10.1); CHLORIDE 100 mmol/L (98-107); CREATININE 1.19 mg/dL (0.7-1.3)
--- NOTE | 2019-12-06 15:46 | NUR ---
PIV PLACED, MEDICATED PER EMAR, TOLERATED WELL. VSS
--- NOTE | 2019-12-06 16:42 | NUR ---
PATIENT RESTING ON GURNEY, RESPIRATIONS EVEN AND UNLABORED, VSS, NADN. DENIES PAIN AT THIS TIME.
[2019-12-06] MEDS ORDERED: LIDOCAINE 1%-EPI 1:100K, 20ML ONE (17:15)
--- NOTE | 2019-12-06 17:15 | NUR ---
PA TO ROOM FOR ARTHRO
--- NOTE | 2019-12-06 17:52 | NUR ---
PIPPA BANDAGE APPLIED, VSS, NADN AT THIS TIME
[2019-12-06 18:23] LABS: SYN CELLS COUNTED 1920
--- NOTE | 2019-12-06 18:56 | NUR ---
PATIENT TO COMMODE WITH STEADY GAIT IN ROOM. DANAE, ALTAGRACIA AT THIS TIME. AWAITING LABS FROM [facility]
--- NOTE | 2019-12-06 19:55 | NUR ---
PATIENT SLEEPING AT THIS TIME, VSS, AWATING LAST OF FLUID LAB RESULTS
--- NOTE | 2019-12-06 20:56 | NUR ---
AWAITING ORTHO CONSULT
[2019-12-06] MEDS ORDERED: SODIUM CHLORIDE 0.9% 1,000 ML IV ONE (21:26)
[2019-12-06] MEDS ORDERED: SODIUM CHLORIDE FLUSH 10ML SYR IVF PRN (21:30)
[2019-12-06] MEDS ORDERED: VANCOMYCIN PER PHARMACY MC PRN (21:30)
[2019-12-06] MEDS ORDERED: CEFTRIAXONE PMX 2GM/50ML 0 ML ONE (21:51)
[2019-12-06] MEDS ORDERED: ONDANSETRON 2MG/ML, 2ML IVPush PRN (22:00)
[2019-12-06] MEDS ORDERED: ONDANSETRON ODT 4 MG PO PRN (22:00)
[2019-12-06] MEDS ORDERED: SODIUM CHLORIDE 0.9% 1,000 ML IV SCH (22:00)
--- NOTE | 2019-12-06 22:10 | NUR ---
REPORT GIVEN TO LEORA JONES. PLAN OF CARE DISCUSSED
[2019-12-06 22:21] VITALS: BP 108/75
[2019-12-06] MEDS ORDERED: LORazepam 1MG TABLET PO PRN (22:30)
[2019-12-06] MEDS: INSULIN LISPRO 100 UNITS/ML, PEN SQ-INSULIN SCH (22:38)
[2019-12-06] MEDS ORDERED: PHARMACOKINETIC MONITORING MC PRN (23:00)
[2019-12-06] MEDS ORDERED: PHARMACOKINETIC CONSULTATION MC ONE (23:00)
[2019-12-06] MEDS: COLCHICINE 0.6 MG CAPSULE PO SCH (23:07)
[2019-12-06] MEDS: CEFTRIAXONE PMX 2GM/50ML 50 ML IV SCH (23:07)
[2019-12-07] MEDS: KETOROLAC 30 MG/1 ML IV PRN ×2 (00:06→20:30)
[2019-12-07] MEDS: VANCOMYCIN 1,400 MG in SODIUM CHLORIDE 0.9% 250 ML IV SCH ×2 (00:07→17:37)
[2019-12-07 01:06] VITALS: BP 101/72
[2019-12-07 06:29] LABS: BASOPHILS # (AUTO) 0.01 x10^3/uL (0-0.1); BASOPHILS % (AUTO) 0 % (0-1); EOSINOPHILS # (AUTO) 0.03 x10^3/uL (0-0.4); EOSINOPHILS % (AUTO) 0 % (1-7); LYMPHOCYTES # (AUTO) 0.98 x10^3/uL (1-3.4); LYMPHOCYTES % (AUTO) 11 % (22-44); MD NO; MEAN CORPUSCULAR HEMOGLOBIN 32.9 pg (27.5-34.5); MEAN CORPUSCULAR HGB CONC 33.6 g/dL (33.2-36.2); MEAN CORPUSCULAR VOLUME 98.1 fL (81-97); MEAN PLATELET VOLUME 7.9 fL (7.4-10.4); MONOCYTES # (AUTO) 1.07 x10^3/uL (0.2-0.8); MONOCYTES % (AUTO) 12 % (2-9); NEUTROPHILS # (AUTO) 7.06 x10^3/uL (1.8-6.8); NEUTROPHILS % (AUTO) 77 % (42-75); PLATELET COUNT 216 x10^3/uL (130-400); RED BLOOD COUNT 4.48 x10^6/uL (4.38-5.82); RED CELL DISTRIBUTION WIDTH 15.1 % (9.4-14.8)
[2019-12-07 06:35] LABS: ANION GAP 9 mmol/L (5-15); CALCIUM 8.7 mg/dL (8.5-10.1); CHLORIDE 103 mmol/L (98-107)
[2019-12-07 06:38] LABS: ALANINE AMINOTRANSFERASE 22 U/L (12-78); ALKALINE PHOSPHATASE 90 U/L (45-117); CREATININE 1.15 mg/dL (0.7-1.3); TOTAL PROTEIN 7.6 g/dL (6.4-8.2)
[2019-12-07 07:30] VITALS: BP 98/55
[2019-12-07] MEDS: INSULIN LISPRO 100 UNITS/ML, PEN SQ-INSULIN SCH ×4 (07:32→20:38)
[2019-12-07] MEDS: FOLIC ACID 1 MG TABLET PO SCH (08:17)
[2019-12-07] MEDS: COLCHICINE 0.6 MG CAPSULE PO SCH ×2 (08:17→20:31)
[2019-12-07] MEDS: ASPIRIN 81 MG TABLET EC PO SCH (08:17)
[2019-12-07] MEDS: THIAMINE 100MG TABLET PO SCH (08:19)
[2019-12-07] MEDS: LISINOPRIL 5 MG TABLET PO SCH (08:19)
[2019-12-07 08:20] VITALS: BP 103/68
[2019-12-07 15:07] VITALS: BP 121/68
[2019-12-07 21:04] VITALS: BP 92/57
[2019-12-07] MEDS: CEFTRIAXONE PMX 2GM/50ML 50 ML IV SCH (23:09)
[2019-12-08 03:48] VITALS: BP 92/61
[2019-12-08 05:48] LABS: ANION GAP 8 mmol/L (5-15); CALCIUM 8.5 mg/dL (8.5-10.1); CHLORIDE 102 mmol/L (98-107)
[2019-12-08 05:49] LABS: CREATININE 1.28 mg/dL (0.7-1.3)
[2019-12-08 05:54] LABS: BASOPHILS # (AUTO) 0.04 x10^3/uL (0-0.1); BASOPHILS % (AUTO) 1 % (0-1); EOSINOPHILS # (AUTO) 0.13 x10^3/uL (0-0.4); EOSINOPHILS % (AUTO) 2 % (1-7); LYMPHOCYTES # (AUTO) 1.14 x10^3/uL (1-3.4); LYMPHOCYTES % (AUTO) 16 % (22-44); MD NO; MEAN CORPUSCULAR HEMOGLOBIN 32.8 pg (27.5-34.5); MEAN CORPUSCULAR HGB CONC 32.9 g/dL (33.2-36.2); MEAN CORPUSCULAR VOLUME 99.8 fL (81-97); MEAN PLATELET VOLUME 8.1 fL (7.4-10.4); MONOCYTES # (AUTO) 0.78 x10^3/uL (0.2-0.8); MONOCYTES % (AUTO) 11 % (2-9); NEUTROPHILS # (AUTO) 5.13 x10^3/uL (1.8-6.8); NEUTROPHILS % (AUTO) 71 % (42-75); PLATELET COUNT 218 x10^3/uL (130-400); RED BLOOD COUNT 4.18 x10^6/uL (4.38-5.82); RED CELL DISTRIBUTION WIDTH 15.3 % (9.4-14.8)
[2019-12-08 07:24] VITALS: BP 95/61
[2019-12-08] MEDS: INSULIN LISPRO 100 UNITS/ML, PEN SQ-INSULIN SCH ×4 (07:49→21:31)
[2019-12-08] MEDS: FOLIC ACID 1 MG TABLET PO SCH (08:47)
[2019-12-08] MEDS: COLCHICINE 0.6 MG CAPSULE PO SCH ×2 (08:47→21:31)
[2019-12-08] MEDS: ASPIRIN 81 MG TABLET EC PO SCH (08:47)
[2019-12-08] MEDS: THIAMINE 100MG TABLET PO SCH (08:47)
[2019-12-08] MEDS: LISINOPRIL 5 MG TABLET PO SCH (08:48)
[2019-12-08 12:11] VITALS: BP 107/73
[2019-12-08] MEDS: VANCOMYCIN 1,400 MG in SODIUM CHLORIDE 0.9% 250 ML IV SCH (12:40)
[2019-12-08] MEDS: KETOROLAC 30 MG/1 ML IV PRN (16:47)
[2019-12-08 20:00] VITALS: BP 109/72
[2019-12-08] MEDS: CEFTRIAXONE PMX 2GM/50ML 50 ML IV SCH (23:15)
[2019-12-09 02:00] VITALS: BP 102/57
[2019-12-09] MEDS: VANCOMYCIN 1,400 MG in SODIUM CHLORIDE 0.9% 250 ML IV SCH (06:04)
[2019-12-09 06:59] LABS: BASOPHILS # (AUTO) 0.05 x10^3/uL (0-0.1); BASOPHILS % (AUTO) 1 % (0-1); EOSINOPHILS # (AUTO) 0.09 x10^3/uL (0-0.4); EOSINOPHILS % (AUTO) 2 % (1-7); LYMPHOCYTES # (AUTO) 0.96 x10^3/uL (1-3.4); LYMPHOCYTES % (AUTO) 17 % (22-44); MD NO; MEAN CORPUSCULAR HEMOGLOBIN 33.4 pg (27.5-34.5); MEAN CORPUSCULAR HGB CONC 33.4 g/dL (33.2-36.2); MEAN CORPUSCULAR VOLUME 99.8 fL (81-97); MEAN PLATELET VOLUME 7.5 fL (7.4-10.4); MONOCYTES # (AUTO) 0.56 x10^3/uL (0.2-0.8); MONOCYTES % (AUTO) 10 % (2-9); NEUTROPHILS # (AUTO) 4.14 x10^3/uL (1.8-6.8); NEUTROPHILS % (AUTO) 71 % (42-75); PLATELET COUNT 250 x10^3/uL (130-400); RED BLOOD COUNT 4.26 x10^6/uL (4.38-5.82); RED CELL DISTRIBUTION WIDTH 14.9 % (9.4-14.8)
[2019-12-09] MEDS: INSULIN LISPRO 100 UNITS/ML, PEN SQ-INSULIN SCH ×2 (07:00→11:00)
[2019-12-09 07:12] LABS: ANION GAP 7 mmol/L (5-15); CALCIUM 8.7 mg/dL (8.5-10.1); CHLORIDE 103 mmol/L (98-107); CREATININE 1.22 mg/dL (0.7-1.3)
[2019-12-09 07:14] LABS: VANCOMYCIN,TROUGH 38.9 mcg/mL (5.0-10.0)
[2019-12-09] MEDS ORDERED: LISINOPRIL 5 MG TABLET PO SCH (09:00)
[2019-12-09] MEDS: FOLIC ACID 1 MG TABLET PO SCH (09:47)
[2019-12-09] MEDS: COLCHICINE 0.6 MG CAPSULE PO SCH (09:47)
[2019-12-09] MEDS: ASPIRIN 81 MG TABLET EC PO SCH (09:47)
[2019-12-09] MEDS: THIAMINE 100MG TABLET PO SCH (09:47)
[2019-12-09 10:18] VITALS: BP 123/79
== END 2019-12-09 15:00 | disposition home or self-care (01) | DRG 549 ==
LOC: ED 15:50 → EDIP 21:31 → 3N 22:18
PROVIDERS: ADMIT Internal Medicine; ATTEND Internal Medicine
DX: M00.9 Pyogenic arthritis, unspecified (principal); E87.1 Hypo-osmolality and hyponatremia; I50.32 Chronic diastolic (congestive) heart failure; M25.461 Effusion, right knee; E11.51 Type 2 diabetes mellitus with diabetic peripheral angiopathy without gangrene; M10.9 Gout, unspecified; E11.65 Type 2 diabetes mellitus with hyperglycemia; F10.10 Alcohol abuse, uncomplicated; D75.89 Other specified diseases of blood and blood-forming organs; I11.0 Hypertensive heart disease with heart failure; I27.21 Secondary pulmonary arterial hypertension; K70.30 Alcoholic cirrhosis of liver without ascites; M17.10 Unilateral primary osteoarthritis, unspecified knee; Z79.84 Long term (current) use of oral hypoglycemic drugs
CPT/HCPCS: 36415; 80048; 80053; 80202; 82040; 82945; 82962; 83036; 83615; 84157; 84550; 84560; 85025; 85810; 87070; 87205; 89050; 89060; 96374; 96375; 99285; G0378; J0696; J1885; J2405; J3370; J1815; J2270; J7050

== ENCOUNTER 2020-02-11 09:23 | Emergency (ER) | payer MEDICARE, MEDICAID ==
[~2020-02-11] VITALS: Ht 172.7 cm; Wt 77.1 kg
[~2020-02-11 09:23] MED LIST changes: +CLOT15CR26 TP; -CLOT15CR5 TP; +SPIR25TA5 PO
[2020-02-11 09:29] VITALS: BP 118/72
== END 2020-02-11 10:51 | disposition home or self-care (01) ==
LOC: ED 10:40
DX: I27.20 Pulmonary hypertension, unspecified (principal); Z76.0 Encounter for issue of repeat prescription; R06.02 Shortness of breath; I50.9 Heart failure, unspecified; E11.9 Type 2 diabetes mellitus without complications; I11.0 Hypertensive heart disease with heart failure
CPT/HCPCS: 99281

== ENCOUNTER 2020-04-08 11:09 | Emergency (ER) | payer MEDICARE, MEDICAID ==
[~2020-04-08] VITALS: Ht 172.7 cm; Wt 77.0 kg
--- NOTE | 2020-04-08 12:50 | NUR ---
PT TO ROOM AT THIS TIME.
[2020-04-08] MEDS ORDERED: KETOROLAC 60 MG/2 ML ONE (13:28)
[2020-04-08] MEDS ORDERED: KETOROLAC 30 MG/1 ML IM ONE (13:30)
--- NOTE | 2020-04-08 13:39 | NUR ---
TASK RN NOTE: PT MEDICATED PER EMAR, TOLERATED WELL. SENIOR BENEFITS SPECIALIST AT BEDSIDE FOR DRAW.
[2020-04-08 13:43] VITALS: BP 121/82
[2020-04-08 13:50] LABS: BASOPHILS # (AUTO) 0.01 x10^3/uL (0-0.1); BASOPHILS % (AUTO) 0 % (0-1); EOSINOPHILS # (AUTO) 0.02 x10^3/uL (0-0.4); EOSINOPHILS % (AUTO) 0 % (1-7); LYMPHOCYTES # (AUTO) 0.63 x10^3/uL (1-3.4); LYMPHOCYTES % (AUTO) 7 % (22-44); MD NO; MEAN CORPUSCULAR HEMOGLOBIN 33.5 pg (27.5-34.5); MEAN CORPUSCULAR HGB CONC 32.7 g/dL (33.2-36.2); MEAN PLATELET VOLUME 7.3 fL (7.4-10.4); MONOCYTES # (AUTO) 1.11 x10^3/uL (0.2-0.8); MONOCYTES % (AUTO) 12 % (2-9); NEUTROPHILS # (AUTO) 7.39 x10^3/uL (1.8-6.8); NEUTROPHILS % (AUTO) 81 % (42-75); PLATELET COUNT 232 x10^3/uL (130-400); RED BLOOD COUNT 4.74 x10^6/uL (4.38-5.82); RED CELL DISTRIBUTION WIDTH 15.1 % (9.4-14.8)
--- NOTE | 2020-04-08 14:35 | NUR ---
-can call for ride
== END 2020-04-08 15:49 | disposition home or self-care (01) ==
LOC: ED 12:26
DX: M1A.9XX0 Chronic gout, unspecified, without tophus (tophi) (principal); E11.9 Type 2 diabetes mellitus without complications; I11.0 Hypertensive heart disease with heart failure; I50.9 Heart failure, unspecified; M19.90 Unspecified osteoarthritis, unspecified site; F17.200 Nicotine dependence, unspecified, uncomplicated
CPT/HCPCS: 36415; 73564; 73630; 84550; 85025; 96372; 99284; J1885

== ENCOUNTER 2020-08-31 11:48 | Emergency (ER) | payer MEDICARE, MEDICAID ==
[~2020-08-31] VITALS: Ht 172.7 cm; Wt 80.0 kg
[~2020-08-31 11:48] MED LIST changes: -ASPI-515 PO; +ASPI-963 PO; -LISI40TA PO; +LISI40TA9 PO; -OXYC-302 PO; +OXYC1TAB14 PO
[2020-08-31] MEDS ORDERED: KETOROLAC 60 MG/2 ML ONE (12:26)
[2020-08-31] MEDS ORDERED: KETOROLAC 30 MG/1 ML IM ONE ×3 (12:30)
[2020-08-31] MEDS ORDERED: LIDOCAINE 1%-EPI 1:100K, 20ML SQ ONE (13:00)
[2020-08-31 13:10] LABS: BASOPHILS % (AUTO) 1 % (0-1); EOSINOPHILS % (AUTO) 0 % (1-7); LYMPHOCYTES % (AUTO) 6 % (22-44); MEAN CORPUSCULAR HEMOGLOBIN 33.2 pg (27.5-34.5); MEAN CORPUSCULAR HGB CONC 34.1 g/dL (33.2-36.2); MEAN PLATELET VOLUME 7.8 fL (7.4-10.4); MONOCYTES % (AUTO) 11 % (2-9); NEUTROPHILS % (AUTO) 82 % (42-75); PLATELET COUNT 198 x10^3/uL (130-400); RED BLOOD COUNT 5.12 x10^6/uL (4.38-5.82); RED CELL DISTRIBUTION WIDTH 15.2 % (9.4-14.8)
--- NOTE | 2020-08-31 13:10 | NUR ---
PT CAME IN CO LEFT KNEE PAIN AND SWELLING. DENIES TRAUMA. PT REPORTS ITS VERY PAINFUL TO WALK ON. PT BIB ON WHEELCHAIR. PT MEDICATED PER SEP. TO GO TO IR FOR ARTHOCENTESIS
[2020-08-31 13:12] LABS: MD NO
[2020-08-31 13:17] LABS: ALBUMIN 3.4 g/dL (3.4-5.0); ANION GAP 10 mmol/L (5-15); CALCIUM 9.1 mg/dL (8.5-10.1); CHLORIDE 101 mmol/L (98-107); CREATININE 1.13 mg/dL (0.7-1.3)
[2020-08-31] MEDS ORDERED: LIDOCAINE-MPF 1%, 5ML ONE (13:18)
--- NOTE | 2020-08-31 14:34 | NUR ---
PT RESTING IN [facility]. NAD. VSS. AWAITING LAB RESULTS
[2020-08-31 15:34] VITALS: BP 131/91
--- NOTE | 2020-08-31 16:12 | NUR ---
PT RESTING IN [facility]. AWAITING ORTHO CALL. LAB IN ROOM TO DRAW PT
[2020-08-31 17:15] LABS: HCT (SEDRATE) 49.8 % (39.2-51.8)
== END 2020-08-31 17:01 | disposition home or self-care (01) ==
LOC: ED 16:51
DX: M12.862 Other specific arthropathies, not elsewhere classified, left knee (principal); M54.5 Low back pain; R26.2 Difficulty in walking, not elsewhere classified; I11.0 Hypertensive heart disease with heart failure; I50.9 Heart failure, unspecified; E11.9 Type 2 diabetes mellitus without complications
CPT/HCPCS: 36415; 73564; 80048; 82040; 82945; 84157; 84550; 84560; 85025; 85651; 85810; 86140; 87070; 87205; 89050; 89060; 96372; 99284; J1885

== ENCOUNTER → 2020-11-28 | Outpatient (CLI) | payer MEDICARE, MEDICAID | END | disposition home or self-care (01) | LOC: CFH 15:08 | PROVIDERS: ATTEND Internal Medicine Cardiovascular Disease | DX: I08.3 Combined rheumatic disorders of mitral, aortic and tricuspid valves (principal); I11.9 Hypertensive heart disease without heart failure | CPT/HCPCS: 93306 ==

== ENCOUNTER 2020-12-21 12:28 | Emergency (ER) | payer MEDICARE, MEDICAID ==
[~2020-12-21] VITALS: Ht 172.7 cm; Wt 71.0 kg
[2020-12-21 12:35] VITALS: BP 123/99
--- NOTE | 2020-12-21 13:25 | NUR ---
no answer in lobby.
--- NOTE | 2020-12-21 14:13 | NUR ---
NOT IN LOBBY AT THIS TIME
--- NOTE | 2020-12-21 14:32 | NUR ---
NOT IN LOBBY AT THIS TIME.
== END 2020-12-21 14:34 | disposition left against medical advice (07) ==
LOC: ED 14:25
DX: R21 Rash and other nonspecific skin eruption (principal); Z53.21 Procedure and treatment not carried out due to patient leaving prior to being seen by health care provider

== ENCOUNTER 2020-12-22 07:35 | Emergency (ER) | payer MEDICARE, MEDICAID ==
[~2020-12-22] VITALS: Ht 172.7 cm; Wt 72.0 kg
[2020-12-22 07:46] VITALS: BP 122/59
--- NOTE | 2020-12-22 08:15 | NUR ---
TO POLO FROM LOBBY
[2020-12-22] MEDS ORDERED: PERMETHRIN CRM 5%, 60GM TP STA (09:18)
--- NOTE | 2020-12-22 10:03 | NUR ---
Patient/Caregiver given discharge instructions and they have confirmed that they understand the instructions. Patient ambulatory with steady gait. NAD, all questions answered appropriately, denies additional needs at this time. No personal belongings left in room after discharge.
== END 2020-12-22 10:05 | disposition home or self-care (01) ==
LOC: ED 09:59
DX: L30.8 Other specified dermatitis (principal); E11.9 Type 2 diabetes mellitus without complications; I11.0 Hypertensive heart disease with heart failure; I50.9 Heart failure, unspecified; F17.200 Nicotine dependence, unspecified, uncomplicated; I27.20 Pulmonary hypertension, unspecified
CPT/HCPCS: 99283; J7512

== ENCOUNTER 2021-03-12 13:06 | Day surgery (SDC) | payer MEDICARE, MEDICAID ==
[~2021-03-12] VITALS: Ht 172.7 cm; Wt 77.3 kg
[~2021-03-12 13:06] MED LIST changes: +OXYC1TAB12 PO; -OXYC1TAB14 PO
[2021-03-12 14:15] VITALS: BP 139/98
[2021-03-12] MEDS ORDERED: CARV3.1212 PO (14:23)
[2021-03-12] MEDS ORDERED: TADA20TA33 PO (14:23)
[2021-03-12] MEDS ORDERED: SPIR25TA5 PO (14:23)
[2021-03-12] MEDS ORDERED: DIPHENHYDRAMINE 50 MG/ML, 1ML IVPush ONE (14:30)
[2021-03-12 14:48] LABS: BASOPHILS % (AUTO) 1 % (0-1); EOSINOPHILS % (AUTO) 2 % (1-7); LYMPHOCYTES % (AUTO) 17 % (22-44); MEAN CORPUSCULAR HEMOGLOBIN 34.2 pg (27.5-34.5); MEAN CORPUSCULAR HGB CONC 34.1 g/dL (33.2-36.2); MEAN PLATELET VOLUME 7.8 fL (7.4-10.4); MONOCYTES % (AUTO) 9 % (2-9); NEUTROPHILS % (AUTO) 71 % (42-75); PLATELET COUNT 155 x10^3/uL (130-400); RED BLOOD COUNT 5.13 x10^6/uL (4.38-5.82); RED CELL DISTRIBUTION WIDTH 14.4 % (9.4-14.8)
[2021-03-12 14:57] LABS: INTERNATIONAL NORMALIZED RATIO 1.07 (0.93-1.1); PROTHROMBIN TIME 11.4 Seconds (9.6-11.5)
[2021-03-12 14:58] LABS: ANION GAP 11 mmol/L (5-15); CHLORIDE 102 mmol/L (98-107); CREATININE 1.26 mg/dL (0.7-1.3)
[2021-03-12] MEDS ORDERED: DIPHENHYDRAMINE 50 MG/ML, 1ML ONE (15:18)
[2021-03-12] MEDS ORDERED: LIDOCAINE-MPF 2%, 2ML ONE (16:07)
[2021-03-12] MEDS ORDERED: FENTANYL PF 100 MCG/2ML ONE (16:13)
[2021-03-12] MEDS ORDERED: MIDAZOLAM 1 MG/ML, 2ML ONE (16:13)
[2021-03-12] MEDS ORDERED: FUROSEMIDE 40 MG/4 ML ONE (17:15)
[2021-03-12] MEDS ORDERED: FUROSEMIDE 40 MG/4 ML IV ONE (18:00)
== END 2021-03-12 17:35 | disposition home or self-care (01) ==
LOC: CACL 13:06
PROVIDERS: ATTEND Internal Medicine Cardiovascular Disease
DX: I27.29 Other secondary pulmonary hypertension (principal); E11.9 Type 2 diabetes mellitus without complications; F12.10 Cannabis abuse, uncomplicated; Z79.01 Long term (current) use of anticoagulants; Z79.82 Long term (current) use of aspirin; Z79.84 Long term (current) use of oral hypoglycemic drugs; Z79.899 Other long term (current) drug therapy; Z87.891 Personal history of nicotine dependence
CPT/HCPCS: 36415; 80048; 83880; 85025; 85610; 93451; 99156; 99157; C1894; J1200; J1940; J2250; J3010

== ENCOUNTER 2021-03-13 14:49 | Emergency (ER) | payer MEDICAID, MEDICARE ==
[~2021-03-13] VITALS: Ht 172.7 cm; Wt 74.8 kg
[~2021-03-13 14:49] MED LIST changes: +TADA20TA33 PO
[2021-03-13 16:05] LABS: BASOPHILS % (AUTO) 1 % (0-1); EOSINOPHILS % (AUTO) 2 % (1-7); LYMPHOCYTES % (AUTO) 16 % (22-44); MEAN CORPUSCULAR HEMOGLOBIN 34.3 pg (27.5-34.5); MEAN CORPUSCULAR HGB CONC 34.4 g/dL (33.2-36.2); MEAN PLATELET VOLUME 7.9 fL (7.4-10.4); MONOCYTES % (AUTO) 11 % (2-9); NEUTROPHILS % (AUTO) 71 % (42-75); PLATELET COUNT 189 x10^3/uL (130-400); RED BLOOD COUNT 5.72 x10^6/uL (4.38-5.82); RED CELL DISTRIBUTION WIDTH 14.6 % (9.4-14.8)
[2021-03-13 16:10] LABS: ALBUMIN 4.1 g/dL (3.4-5.0); ANION GAP 11 mmol/L (5-15); CALCIUM 9.2 mg/dL (8.5-10.1); CHLORIDE 97 mmol/L (98-107)
[2021-03-13 16:13] LABS: CREATINE KINASE, TOTAL 111 U/L (39-308)
--- NOTE | 2021-03-13 16:34 | NUR ---
MEAL COOKER: PT TO LOBBY VIA
--- NOTE | 2021-03-13 16:41 | NUR ---
PT BROUGHT BACK FROM TRIAGE WITH CHIEF COMPLAINT OF CRAMPS SINCE TAKINGLASIX YESTERDAY.
--- NOTE | 2021-03-13 17:24 | NUR ---
STEADY AMBULATION TO BATHROOM
[2021-03-13] MEDS ORDERED: SODIUM CHLORIDE 0.9% 1,000ML IVBOLUS ONE (18:00)
[2021-03-13] MEDS ORDERED: SODIUM CHLORIDE FLUSH 10ML SYR IVF ONE (18:00)
--- NOTE | 2021-03-13 18:55 | NUR ---
REPORT TO ROBERT COREY
[2021-03-13 19:07] VITALS: BP 148/102
--- NOTE | 2021-03-13 19:09 | NUR ---
report recieved from tj sood. pt was attemping to leave ama, this rn able to convince them to saty, piv started, fluids running per md order.
[2021-03-13] MEDS ORDERED: ACETAMINOPHEN 500 MG TABLET ONE (19:14)
[2021-03-13] MEDS ORDERED: ACETAMINOPHEN 500 MG TABLET PO ONE ×2 (19:30)
--- NOTE | 2021-03-13 19:32 | NUR ---
PT STATES FEELING BETTER, LESS CRAMPING, AFTER IVF ADMIN. ERP UPDATED
== END 2021-03-13 20:18 | disposition home or self-care (01) ==
LOC: ED 18:49
DX: E87.1 Hypo-osmolality and hyponatremia (principal); R06.02 Shortness of breath; I11.0 Hypertensive heart disease with heart failure; I50.9 Heart failure, unspecified; E11.9 Type 2 diabetes mellitus without complications; I27.20 Pulmonary hypertension, unspecified; Z87.891 Personal history of nicotine dependence
CPT/HCPCS: 36415; 80048; 82040; 82550; 85025; 99283; J7030